=== PATIENT | male | born 1970 | race African-American/Black ===

== ENCOUNTER 2016-03-11 15:09 | Emergency (ER) | payer BC ==
--- NOTE | 2016-03-11 15:48 | ER Document Report ---
HPI - HPI Patient complains to provider of: sore throat Onset: Other - 2 weeks Onset/Duration: Persistent Quality of pain: Achy Pain Level: 3 Context: Patient complains of sore throat with right side neck tenderness off and on for the past 2 weeks. Patient denies any fever. Patient denies any difficulty breathing or swallowing. Patient denies any dental pain or ear pain. Associated Symptoms: Sore throat. denies: Earache, Fever Exacerbated by: Denies Relieved by: Denies Similar symptoms previously: Yes Recently seen / treated by doctor: No - ROS ROS below otherwise negative: Yes Systems Reviewed and Negative: Yes All other systems reviewed and negative - CONSTITUTIONAL Constitutional: DENIES: Fever, Chills - EENT EENT: REPORTS: Sore Throat. DENIES: Ear Pain - NEURO Neurology: DENIES: Headache - CARDIOVASCULAR Cardiovascular: DENIES: Chest pain - RESPIRATORY Respiratory: DENIES: Coughing - GASTROINTESTINAL Gastrointestinal: DENIES: Nausea, Patient vomiting - MUSCULOSKELETAL Musculoskeletal: REPORTS: Neck Pain - Right side of neck - DERM Skin Color: Normal Skin Problems: None Past Medical History - General Information source: Patient - Social History Smoking Status: Current Every Day Smoker Drug Abuse: None Occupation: on base Lives with: Family Family History: Reviewed & Not Pertinent Psychiatric Medical History: Reports: Hx Post Traumatic Stress Disorder Surgical Hx: Negative Vertical Provider Document - CONSTITUTIONAL Agree With Documented VS: Yes Exam Limitations: No Limitations General Appearance: WD/WN, No Apparent Distress - HEENT HEENT: Atraumatic, Normocephalic, Pharyngeal Tenderness, Pharyngeal Erythema. negative: Pharyngeal Exudate - NECK Neck: Lymphadenopathy-Right - Tender lymph node to upper anterior cervical chain , normal skin color and to Dr. overlying lymph node - RESPIRATORY Respiratory: Breath Sounds Normal, No Respiratory Distress, Chest Non-Tender O2 Sat by Pulse Oximetry: 97 - CARDIOVASCULAR Cardiovascular: Regular Rate, Regular Rhythm, No Murmur - MUSCULOSKELETAL/EXTREMETIES Musculoskeletal/Extremeties: MAEW - NEURO Level of Consciousness: Awake, Alert, Appropriate Motor/Sensory: No Motor Deficit - DERM Integumentary: Warm, Dry, No Rash Course - Vital Signs Vital signs: Temp Pulse Resp BP Pulse Ox 98.2 F 87 16 145/80 H 97 03/11/16 15:21 03/11/16 15:21 03/11/16 15:32 03/11/16 15:21 03/11/16 15:21 Discharge - Discharge Clinical Impression: Sore throat, Elevated blood pressure reading Condition: Stable Disposition: HOME, SELF-CARE Instructions: Sore Throat ([facility]), Penicillin V K ([facility]) Additional Instructions: Return immediately for any new or worsening symptoms Followup with your primary care provider, call tomorrow to make a followup appointment Your blood pressure was mildly elevated today. Recheck with your primary doctor in 2 days to have this reevaluated. Prescriptions: Naproxen [Naprosyn 250 Nmg Tablet] 1 tab PO BID #14 tablet Penicillin V Potassium [Penicillin Vk 500 mg Tablet] 500 mg PO BID #20 tablet Forms: Return to Work Referrals: [facility] [Provider Group] - 03/13/16
[2016-03-11 16:06] VITALS: BP 138/78
== END 2016-03-11 15:55 | disposition home or self-care (01) ==
LOC: ER 15:09
DX: J02.9 Acute pharyngitis, unspecified (principal); R03.0 Elevated blood-pressure reading, without diagnosis of hypertension; R59.0 Localized enlarged lymph nodes; F17.200 Nicotine dependence, unspecified, uncomplicated
CPT/HCPCS: 99282

== ENCOUNTER 2017-05-16 18:51 | Emergency (ER) | payer BC ==
[2017-05-16] MEDS ORDERED: DEXAMETHASONE SOD PHOS INJ 10 MG/1 ML VIAL IM ONE (19:51)
--- NOTE | 2017-05-16 19:57 | ER Document Report ---
HPI - HPI Pain Level: 5 Notes: Patient is a 46-year-old male with no significant past medical history presents to the ED complaining of a sore throat and right lower dental pain #312-3 days. Patient states that he is still able to eat and drink without any mechanical difficulties, but does have discomfort in doing so. Patient states that he has noticed that his right lower jaw has been swollen as well with the tooth pain. He has not noticed any other obvious abscess or purulent discharge. He denies any drug allergies or IV drug use. Denies any other recent illness. Denies any headache, fever, URI, chest pain, palpitations, syncope, cough, shortness of breath, wheeze, dyspnea, abdominal pain, nausea/ vomiting/diarrhea, urinary retention, dysuria, hematuria, or rash. - ROS Systems Reviewed and Negative: Yes All other systems reviewed and negative Past Medical History - Social History Smoking Status: Never Smoker Family History: Reviewed & Not Pertinent Psychiatric Medical History: Reports: Hx Post Traumatic Stress Disorder Vertical Provider Document - CONSTITUTIONAL Agree With Documented VS: Yes Notes: PHYSICAL EXAMINATION: GENERAL: Well-appearing, well-nourished and in no acute distress. A&Ox4. Speech is normal, no 'hot potato voice.' HEAD: Atraumatic, normocephalic. EYES: Pupils equal round and reactive to light, extraocular movements intact, sclera anicteric, conjunctiva are normal. ENT: EAC clear b/l. TM's intact b/l without erythema, fluid, or perforation. Nares patent and without discharge. oropharynx mild erythema without exudates. 1+ tonsilar hypertrophy with mild erythema, no exudates. Moist mucous membranes. No sinus tenderness. Uvula midline. No palatine shift. No tongue protrusion. No respiratory compromise. Mouth: Poor dentition. + mild gingivitis. No obvious abscess or discharge noted. + very mild rt facial swelling. + tenderness to tooth #31. NECK: Normal range of motion, supple without lymphadenopathy. No rigidity/ meningismus. LUNGS: Breath sounds clear to auscultation bilaterally and equal. No wheezes rales or rhonchi. HEART: Regular rate and rhythm without murmurs, rubs, gallops. NEUROLOGICAL: Normal speech, normal gait. Normal sensory, motor exams PSYCH: Normal mood, normal affect. SKIN: Warm, Dry, normal turgor, no rashes or lesions noted. - INFECTION CONTROL TRAVEL OUTSIDE OF THE [place] IN LAST 30 DAYS: No Course - Re-evaluation Re-evalutation: 05/16/17 20:17 Patient is an afebrile, well-hydrated, 46-year-old male who presents to the ED with dental pain to #31, suspect nerve root etiology versus infection, as well as acute pharyngitis which I suspect is viral. Vitals are acceptable. PE is otherwise unremarkable. Patient given Decadron and Lidocaine viscous today. Rapid strep was negative with throat culture pending. No other labs or imaging warranted at this time based on H&P. Patient's speech was clear and normal, no uvula midline, no palatine shift, and no airway compromise. Patient is not tachycardic, tachypneic, or hypoxic. Low suspicion for any meningitis, sepsis, peritonsillar/pharyngeal abscess, respiratory compromise, El's, temporal arteritis, or other emergent systemic condition at this time. Patient is aware this condition can change from initial presentation and he needs to monitor symptoms closely. I will send him home with a prescription for penicillin for his dental pain. Conservative measures otherwise for symptoms. Call to schedule an appointment with a dentist for further evaluation and management. Recheck with your PCM this week as well. Return to the ED with any worsening/ concerning symptoms otherwise as reviewed in discharge. Patient is in agreement. - Vital Signs Vital signs: Temp Pulse Resp BP Pulse Ox 98.4 F 64 16 134/78 H 97 05/16/17 19:07 05/16/17 19:07 05/16/17 19:07 05/16/17 19:07 05/16/17 19:07 Discharge - Discharge Clinical Impression: Pain, dental Acute pharyngitis Qualifiers: Pharyngitis/tonsillitis etiology: unspecified etiology Qualified Code(s): J02.9 - Acute pharyngitis, unspecified Condition: Stable Disposition: HOME, SELF-CARE Instructions: Penicillin V K ([facility]), Sore Throat ([facility]), Toothache ([facility]) Additional Instructions: [place] and floss twice daily Maintain fluid intake Take antibiotics as directed Mouthwash, salt water gargles, peroxide rinse as needed Tylenol/ibuprofen as needed Recheck with PCM this week Call today/tomorrow and schedule an appointment with your dentist for further evaluation Return to the ED with any worsening symptoms and/or development of fever, headache, facial swelling, swelling of lips/tongue/throat, trouble swallowing, drooling, hoarseness, neck pain/stiffness, chest pain, palpitations, syncope, shortness of breath, trouble breathing, abdominal pain, n/v/d, numbness/tingling , or other worsening symptoms that are concerning to you. Prescriptions: Penicillin V Potassium [Penicillin Vk 250 mg Tablet] 500 mg PO BID #40 tablet Forms: Elevated Blood Pressure Referrals: [facility] [Provider Group] - Follow up as needed
[2017-05-16] MEDS ORDERED: LIDOCAINE 2% VISCOUS SOLN 20 ML UDCUP PO ONE (20:21)
[2017-05-16 20:30] VITALS: BP 128/76
== END 2017-05-16 20:31 | disposition home or self-care (01) ==
LOC: ER 18:51
DX: J02.9 Acute pharyngitis, unspecified (principal); K08.9 Disorder of teeth and supporting structures, unspecified
CPT/HCPCS: 99283; 96372; 87070; 87880; J3490; J1100

== ENCOUNTER → 2017-08-07 | Outpatient (CLI) | payer BC, OTHER ==
[2017-08-07 18:35] LABS: HEMATOCRIT 42.6 % (37.9-51.0); HEMOGLOBIN 14.7 g/dL (13.5-17.0); MEAN CORPUSCULAR HEMOGLOBIN 28.8 pg (27.0-33.4); MEAN CORPUSCULAR HGB CONC 34.6 g/dL (32.0-36.0); MEAN CORPUSCULAR VOLUME 83 fl (80-97); PLATELET COUNT 294 10^3/uL (150-450); RED CELL DISTRIBUTION WIDTH 13.2 % (11.5-14.0); WHITE BLOOD COUNT 6.5 10^3/uL (4.0-10.5)
[2017-08-07 18:49] LABS: ANION GAP 14 (5-19); BLOOD UREA NITROGEN 15 mg/dL (7-20); CALCIUM 9.5 mg/dL (8.4-10.2); CARBON DIOXIDE 26 mmol/L (22-30); CHLORIDE 102 mmol/L (98-107); GLUCOSE 90 mg/dL (75-110); POTASSIUM 4.3 mmol/L (3.6-5.0)
--- NOTE | 2017-08-07 19:40 | EKG REPORT ---
SEVERITY:- NORMAL ECG - SINUS RHYTHM : Confirmed by: Mikki Rebolledo MD 07-Aug-2017 19:40:19
== END ==
LOC: OD 17:07
PROVIDERS: ATTEND Orthopaedic Surgery
DX: Z01.89 Encounter for other specified special examinations (principal)
CPT/HCPCS: 36415; 80048; 85027; 93005; 93010

== ENCOUNTER 2018-09-25 05:36 | Inpatient (IN) | payer OTHER ==
[~2018-09-25 05:36] MED LIST: BUPIVACAINE INJ/PF LIPOSOME/PF 266 MG/20 ML SDV INJ PRN; CEFAZOLIN INJ 1 GM VIAL IV PRN; IBUPROFEN 800 MG in NORMAL SALINE 250 ML IV PRN; LACTATED RINGERS 1000 ML IV PRN; LIDOCAINE 0.5% INJ-PF (5 MG/ML) 50 ML SDV SUBCUT PRN; OXYCODONE HCL SR 10 MG TABLET PO PRN; PANTOPRAZOLE SODIUM 20 MG TABLET.DR PO PRN; VANCOMYCIN HCL 1,000 MG in DEXTROSE 5%-WATER 250 ML IV PRN
[2018-09-25] MEDS ORDERED: PANTOPRAZOLE SODIUM 20 MG TABLET.DR PO ONE (05:48)
[2018-09-25] MEDS ORDERED: OXYCODONE HCL SR 10 MG TABLET PO ONE (05:48)
[2018-09-25] MEDS ORDERED: CEFAZOLIN INJ 1 GM VIAL ONE (05:48)
[2018-09-25] MEDS ORDERED: FENTANYL CITRATE INJ/PF 100 MCG/2 ML AMPUL ONE (06:58)
[2018-09-25] MEDS ORDERED: LIDOCAINE 2% INJ-PF (20 MG/ML) 10 ML AMPUL ONE (06:58)
[2018-09-25] MEDS ORDERED: MIDAZOLAM 2 MG/2 ML INJ ONE (06:58)
[2018-09-25] MEDS ORDERED: DEXAMETHASONE SOD PHOSPHATE INJ 4 MG/1 ML VIAL ONE (06:59)
[2018-09-25] MEDS ORDERED: PROPOFOL INJ 200 MG/20 ML VIAL IV ONE (06:59)
[2018-09-25] MEDS ORDERED: TRANEXAMIC ACID INJ/PF 1,000 MG/10 ML SDV IV ONE ×2 (06:59→09:59)
[2018-09-25] MEDS ORDERED: ONDANSETRON HCL INJ/PF 4 MG/2 ML SDV ONE (06:59)
[2018-09-25] MEDS ORDERED: THROMBIN (BOVINE) TOPICAL 20000 UNIT VIAL ONE (07:12)
[2018-09-25] MEDS ORDERED: BUPIVACAINE HCL 0.25% /EPINEPHRINE INJ/PF 30 ML SDV ONE (07:13)
[2018-09-25] MEDS ORDERED: BUPIVACAINE HCL/DEX-WATER/PF 15 MG/2 ML AMPULE ONE ×2 (07:18→07:35)
[2018-09-25] MEDS ORDERED: ONDANSETRON HCL INJ/PF 4 MG/2 ML SDV IV PRN ×2 (08:18→08:59)
[2018-09-25] MEDS ORDERED: LABETALOL HCL INJ 20 MG/4 ML DISP.SYRIN IV PRN (08:18)
[2018-09-25] MEDS ORDERED: PROMETHAZINE HCL INJ 25 MG/1 ML VIAL IV PRN ×2 (08:18)
[2018-09-25] MEDS ORDERED: FENTANYL CITRATE INJ/PF 100 MCG/2 ML AMPUL IV PRN ×3 (08:18)
[2018-09-25] MEDS ORDERED: DIPHENHYDRAMINE HCL 50 MG/ML VIAL IV PRN ×2 (08:18→08:59)
[2018-09-25] MEDS ORDERED: ZOLPIDEM TARTRATE 5 MG TABLET PO PRN (08:59)
[2018-09-25] MEDS ORDERED: ACETAMINOPHEN 325 MG TABLET PO PRN (08:59)
[2018-09-25] MEDS ORDERED: RINGERS SOLUTION,LACTATED 1,000 ML IV PRN (08:59)
[2018-09-25] MEDS ORDERED: MAG HYDROX/AL HYDROX/SIMETH SUSP 30 ML UDCUP PO PRN (08:59)
[2018-09-25] MEDS ORDERED: ONDANSETRON 4 MG TAB.RAPDIS PO PRN (08:59)
--- NOTE | 2018-09-25 08:59 | Operative Report ---
Operative Report DATE OF SURGERY: 09/25/18 PREOPERATIVE DIAGNOSIS: Right knee arthritis OPERATION: Right knee arthroplasty SURGEON: JOVANY MUNOZ ANESTHESIA: Spinal TISSUE REMOVED OR ALTERED: Bone to pathology ESTIMATED BLOOD LOSS: 50 PROCEDURE: Implants used: Femur: [place] triathlon size 7 CR uncemented femur Tibia: 6 uncemented tibia Tibial liner: 9 mm CS insert Patella: 38 mm uncemented patella Procedure with the patient supine on the operating table the right the limb is prepped and draped in a sterile fashion. The limb was elevated for exsanguination and the tourniquet inflated to 280 torr. A standard midline median parapatellar approach the knee is taken. Access is gained to the femoral canal through the intercondylar notch. Intramedullary alignment instrumentation used to resect 10 mm of distal femur in 5 of valgus. Sizing guide indicated a size 7 femur. Appropriate cutting jig is then used to fashion anterior posterior and chamfer cuts. A trial reduction femurs performed and this is judged to be adequate. Attention was next turned to the tibia. Using an extra medullary alignment system 9 millimeters was resected off the lateral tibial plateau. This is sized to a size 6 tibia. A trial reduction was now performed with a 7 femur and a 6 tibia using a 9 millimeters spacer. It is full extension and central patellofemoral tracking. The articular surface the patella was next resected using an oscillating saw. All trial implants were removed. the above implants are impacted into place. the tourniquet was deflated hemostasis obtained the wound is then closed in layers using interrupted Vicryl followed by david. A sterile compressive dressing was applied and the patient returned to recovery room in satisfactory condition.
[2018-09-25] MEDS ORDERED: MEPERIDINE HCL/PF INJ 25 MG/1 ML DISP.SYRIN ONE (09:20)
[2018-09-25] MEDS: MEPERIDINE HCL/PF INJ 25 MG/1 ML DISP.SYRIN IV PRN ×2 (09:21→09:26)
--- NOTE | 2018-09-25 09:59 | RADIOLOGY REPORT (SQ) ---
EXAM DESCRIPTION: KNEE RIGHT 2 VIEWS COMPLETED DATE/TIME: 09/25/2018 9:33 am REASON FOR STUDY: Post OP -Long Cassette in PACU M17.11 UNILATERAL PRIMARY OSTEOARTHRITIS, RIGHT KN EE COMPARISON: None. NUMBER OF VIEWS: Two view(s). TECHNIQUE: Digital radiographic images of the right knee post-procedure. LIMITATIONS: None. FINDINGS: BONES: No worrisome or unexpected findings post-procedure. DEVICE: Total knee arthroplasty SOFT TISSUES: No worrisome findings. Expected postoperative soft tissue changes. IMPRESSION: SATISFACTORY POSTOPERATIVE RIGHT KNEE. TECHNICAL DOCUMENTATION: JOB ID: [id number] [employer]- All Rights Reserved Reading location - IP/workstation name: [email or web address]
[2018-09-25] MEDS: TRANEXAMIC ACID INJ/PF 1,000 MG/10 ML SDV IV ONE ×2 (10:14→11:33)
[2018-09-25] MEDS: PRENATAL VITAMIN W DHA CAPSULE PO SCH (11:36)
[2018-09-25] MEDS: OXYCODONE HCL SR 10 MG TABLET PO SCH ×2 (11:37→21:03)
[2018-09-25] MEDS: ASPIRIN 81 MG TABLET, ENT COATED PO SCH (11:37)
[2018-09-25] MEDS: SENNOSIDES/DOCUSATE 8.6-50 MG 1 EACH TABLET PO SCH ×2 (11:37→17:10)
[2018-09-25] MEDS: ATORVASTATIN CALCIUM 40 MG TABLET PO SCH (11:37)
[2018-09-25] MEDS: IBUPROFEN 800 MG in NORMAL SALINE 250 ML IV SCH ×2 (13:35→21:03)
[2018-09-25] MEDS: OXYCODONE HCL IR 5 MG TABLET PO PRN (15:36)
[2018-09-25] MEDS ORDERED: MORPHINE SULFATE 10 MG/ML INJ IV PRN ×2 (16:24→16:25)
[2018-09-25] MEDS ORDERED: VANCOMYCIN HCL 1,000 MG in DEXTROSE 5%-WATER 250 ML IV ONE (20:59)
[2018-09-25] MEDS: PREGABALIN 75 MG CAPSULE PO SCH (21:03)
[2018-09-26 05:33] LABS: HEMATOCRIT 39.7 % (37.9-51.0); HEMOGLOBIN 13.6 g/dL (13.5-17.0); MEAN CORPUSCULAR HEMOGLOBIN 29.2 pg (27.0-33.4); MEAN CORPUSCULAR HGB CONC 34.3 g/dL (32.0-36.0); MEAN CORPUSCULAR VOLUME 85 fl (80-97); PLATELET COUNT 287 10^3/uL (150-450); RED BLOOD COUNT 4.67 10^6/uL (4.35-5.55); WHITE BLOOD COUNT 9.5 10^3/uL (4.0-10.5)
[2018-09-26 05:51] LABS: ANION GAP 7 (5-19); BLOOD UREA NITROGEN 13 mg/dL (7-20); CALCIUM 8.9 mg/dL (8.4-10.2); CARBON DIOXIDE 27 mmol/L (22-30); CHLORIDE 102 mmol/L (98-107); GLUCOSE 128 mg/dL (75-110); POTASSIUM 4.1 mmol/L (3.6-5.0)
[2018-09-26] MEDS ORDERED: PANTOPRAZOLE SODIUM 40 MG TABLET.DR PO SCH (06:00)
[2018-09-26] MEDS: IBUPROFEN 800 MG in NORMAL SALINE 250 ML IV SCH (06:11)
[2018-09-26] MEDS: OXYCODONE HCL IR 5 MG TABLET PO PRN (06:16)
--- NOTE | 2018-09-26 06:31 | PDOC DISCHARGE SUMMARY ---
General - Admit/Disc Date/PCP Admission Date/Primary Care Provider: 09/25/18 05:36 [facility] Discharge Date: 09/26/18 - Discharge Diagnosis (1) Arthritis of right knee Is this a current diagnosis for this admission?: Yes - Additional Information Resuscitation Status: Full Code Discharge Diet: As Tolerated, Regular Discharge Activity: Balance Activity w/Rest, No Driving, No tub bath Home Medications: Atorvastatin Calcium [Lipitor 40 mg Tablet] 40 mg PO DAILY 09/18/18 History of Present Illness History of Present Illness: NATALI DUDLEY JR is a 48 year old male 48-year-old black male with progressive right knee pain and functional disability second osteoarthritis. Patient is admitted for elective right knee arthroplasty. Hospital Course Hospital Course: Patient is admitted through the operating room he undergoes an unconjugated right knee arthroplasty. Is returned to floor in satisfactory condition. He seen by physical therapy and ambulates 300 feet on the day of surgery. On postop day 1 his compressive dressing was removed. The underlying OpSite dressing is clean dry and intact. There is minimal pedal edema. Physical Exam Vital Signs: Temp Pulse Resp BP Pulse Ox 36.6 C 69 17 138/84 H 99 09/26/18 00:00 09/26/18 00:00 09/26/18 00:00 09/26/18 00:00 09/26/18 00:00 Intake & Output 09/24/18 09/25/18 09/26/18 06:59 06:59 06:59 Intake Total 0 3610 Output Total 350 Balance 0 3260 Weight 115.67 kg Physical Exam: Overweight middle-aged white male standing at the sink brushing his teeth. General appearance: PRESENT: no acute distress, mild distress, obese, well- developed, well-nourished Head exam: PRESENT: normocephalic Respiratory exam: PRESENT: unlabored Cardiovascular exam: PRESENT: RRR GI/Abdominal exam: PRESENT: soft Rectal exam: PRESENT: deferred Musculoskeletal exam: PRESENT: other - Compressive dressing removed in the right lower extremity. Underlying OpSite dressing is clean dry and intact. There is minimal pedal edema. There is mild tenderness to palpation. There is no drainage. Distal neurovascular examination is intact. Neurological exam: PRESENT: alert, awake, oriented to person, oriented to place, oriented to time, oriented to situation. ABSENT: motor sensory deficit Psychiatric exam: PRESENT: appropriate affect, normal mood. ABSENT: homicidal ideation, suicidal ideation Skin exam: PRESENT: dry, intact, warm. ABSENT: cyanosis, rash Results Laboratory Results: 09/26/18 05:18 09/26/18 05:18 09/26/18 09/26/18 05:18 05:18 WBC 9.5 RBC 4.67 Hgb 13.6 Hct 39.7 MCV 85 MCH 29.2 MCHC 34.3 RDW 13.0 Plt Count 287 Sodium 136.3 L Potassium 4.1 Chloride 102 Carbon Dioxide 27 Anion Gap 7 BUN 13 Creatinine 0.89 Est GFR ( Amer) > 60 Est GFR (Non-Af Amer) > 60 Glucose 128 H Calcium 8.9 Impressions: Knee X-Ray 09/25/18 09:01 IMPRESSION: SATISFACTORY POSTOPERATIVE RIGHT KNEE. Status: Imported from PACS Qualifiers - * PATIENT BEING DISCHARGED WITH ANY OF THE FOLLOWING DIAGNOSIS: No VTE patient discharged on overlapping Therapy?: Yes Acute Heart Failure - Is this a Heart Failure Patient?: No Plan Discharge Plan: Patient be discharged home with home health services and DME. Follow-up with Dr. [facility] for surgery in 2 weeks for staple removal. Time Spent: Less than 30 Minutes
[2018-09-26 08:15] VITALS: BP 141/62
[2018-09-26] MEDS: PRENATAL VITAMIN W DHA CAPSULE PO SCH (10:30)
[2018-09-26] MEDS: ATORVASTATIN CALCIUM 40 MG TABLET PO SCH (10:30)
[2018-09-26] MEDS: SENNOSIDES/DOCUSATE 8.6-50 MG 1 EACH TABLET PO SCH (10:30)
[2018-09-26] MEDS: PREGABALIN 75 MG CAPSULE PO SCH (10:30)
[2018-09-26] MEDS: ASPIRIN 81 MG TABLET, ENT COATED PO SCH (10:30)
[2018-09-26] MEDS: OXYCODONE HCL SR 10 MG TABLET PO SCH (10:44)
[2018-09-26] MEDS ORDERED: DIPHENHYDRAMINE HCL 50 MG/ML VIAL IV PRN (11:00)
[2018-09-26] MEDS ORDERED: ZOLPIDEM TARTRATE 5 MG TABLET PO PRN (11:00)
[2018-09-26] MEDS ORDERED: ONDANSETRON 4 MG TAB.RAPDIS PO PRN (11:00)
[2018-09-26] MEDS ORDERED: ONDANSETRON HCL INJ/PF 4 MG/2 ML SDV IV PRN (11:00)
== END 2018-09-26 12:54 | disposition home health service (06) | DRG 470 ==
LOC: INOR 05:36 → 4S 10:39
PROVIDERS: ADMIT Orthopaedic Surgery; ATTEND Orthopaedic Surgery
PROC: 0SRC0JA Replacement of Right Knee Joint with Synthetic Substitute, Uncemented, Open Approach (ICD-10-PCS; principal; 2018-09-25 07:30)
DX: M17.11 Unilateral primary osteoarthritis, right knee (principal); E66.9 Obesity, unspecified; F17.210 Nicotine dependence, cigarettes, uncomplicated
CPT/HCPCS: 01402; 36415; 80048; 85027; 88304; 88305; 88311; 94799; C1776; J0690; J1100; J1741; J2175; J2250; J2270; J2405; J2704; J3010; J3370; J3490; J7050; J7060